=== PATIENT | female | born 1995 | race Caucasian/White ===

== ENCOUNTER 2023-03-06 18:15 | Emergency (ER) | payer OTHER, SELFPAY ==
--- NOTE | 2023-03-06 18:21 | ED.GENADULT ---
HPI - General Adult General Chief complaint: Upper Respiratory Infection Stated complaint: Sore Throat,Bilateral Ear Irritation,Body Aches Time Seen by Provider: 03/06/23 18:21 Source: patient Mode of arrival: ambulatory Limitations: no limitations History of Present Illness HPI narrative: 27-year-old female patient presents to the [facility] with complaints of bilateral ear pain and sore throat that started yesterday. Denies any fevers that she is aware of but states that she has had some body aches. Patient states that her has had strep twice the past month. Patient is actively breast-feeding at this time. Patient states she has been taking Tylenol and Motrin for pain and body aches. Related Data Home Medications Medication Instructions Recorded Confirmed norethindrone (contraceptive) 0.35 0.35 mg PO DAILY 03/06/23 03/06/23 mg tablet Allergies Allergy/AdvReac Type Severity Reaction Status Date / Time Sulfa (Sulfonamide AdvReac Mild Rash Verified 03/06/23 18:41 Antibiotics) Review of Systems Review of Systems: CONSTITUTIONAL: Denies fever, chills, or sweats. EYES: Denies visual changes, redness, or discharge. ENT: Denies rhinorrhea, congestion, Positive sore throat, positive bilateral otalgia. CARDIOVASCULAR: Denies chest pain, palpitations, or edema. RESPIRATORY: Denies cough or dyspnea. GASTROINTESTINAL: Denies abdominal pain, nausea, vomiting, or diarrhea. GENITOURINARY: Denies dysuria or hematuria. SKIN: Denies rash or itching. MUSCULOSKELETAL: Denies back pain, joint pain, or myalgia. NEUROLOGIC: Denies headache, numbness, or weakness. PSYCHIATRIC: Denies anxiety or depression. [facility] Past Medical History Medical History (Updated 03/06/23 @ 18:59 by CEDRIC [place]) No significant past medical history Comments At the time of my signature I agree with nursing past medical history, surgical, social, and family history. There is no relevant family history pertinent to the presenting complaint. Exam Narrative: GENERAL: Well-appearing, well-nourished, and in no acute distress. HEAD: Normocephalic, atraumatic. EYES: PERRLA and EOMI. ENT: Nares clear, no rhinorrhea or epistaxis. Mucous membranes moist. posterior pharynx with no erythema, tonsillitis right, exudates or lesions present. Bilateral TMs are clear no erythema or by now. NECK: Supple. No lymphadenopathy CHEST: Clear to auscultation. No respiratory distress. HEART: Regular rate and rhythm. No murmur heard. Normal peripheral pulses. ABDOMEN: Soft, nontender, nondistended, normal active bowel sounds. EXTREMITIES: Normal range of motion. No edema. SKIN: Warm, dry, no rash. NEURO: No focal deficits. Alert and oriented x3. Course Course Level of Care: Express Care Visit Reevaluation(s) Reevaluation #1: Discussed with patient that she has tested negative for COVID, influenza and strep today. Discussed with patient that we will send the strep to the lab for further evaluation and culture and if it does come back positive we will call her at that time. Date: 03/06/23 Time: 19:12 Vital Signs Vital signs: Vital Signs Temperature 37.6 C H 03/06/23 18:27 Pulse Rate 116 H 03/06/23 18:27 Respiratory Rate 18 03/06/23 18:27 Blood Pressure 135/80 03/06/23 18:27 Pulse Oximetry 99 03/06/23 18:27 Oxygen Delivery Room Air 03/06/23 18:27 Temperature 37.6 C H 03/06/23 18:27 Pulse Rate 116 H 03/06/23 18:27 Respiratory Rate 18 03/06/23 18:27 Blood Pressure 135/80 03/06/23 18:27 Pulse Oximetry 99 03/06/23 18:27 Oxygen Delivery Room Air 03/06/23 18:27 Vital signs reviewed Medical Decision Making MDM Narrative Medical decision making narrative: Care for patient's swab per day for strep. I will reassess her once this has resulted. Differential Diagnosis Differential Diagnosis: differential diagnosis: Allergic rhinitis, chronic sinusitis, tonsillitis, acute sinusitis, infectious
[2023-03-06 18:27] VITALS: BP 135/80; PULSE 116; RESP 18; TEMP 37.6; O2SAT 99
== END 2023-03-06 19:16 | disposition home or self-care (01) ==
PROVIDERS: Emergency Provider Nurse Practitioner Family
DX: J02.9 Acute pharyngitis, unspecified (principal); B34.9 Viral infection, unspecified; Z86.16 Personal history of COVID-19
CPT/HCPCS: 87081; 87426; 87804; 87880; 99213; C9803; G0463